=== PATIENT | male | born 1950 | race Caucasian/White ===

== ENCOUNTER → 2017-06-22 16:04 | Outpatient (CLI) | payer OTHER, MEDICARE, SELFPAY ==
[2017-06-22 17:39] LABS: Absolute Lymphocyte Count 3.45 X10^3/ul (0.83-4.51); Absolute Neutrophil Count 5.3 X10^3/uL (2.0-7.7); Basophil# 0.04 X10^3/uL; Basophil% 0.4 % (0-1); Eosinophil# 0.25 X10^3/uL; Eosinophils% 2.4 % (0-5); Hematocrit 42.2 % (40-54); Hemoglobin 14.6 g/dl (13.0-16.5); Lymphocyte # 3.45 X10^3/ul (4.0); Lymphocyte % 33.1 % (19-41); Mean Corp Hgb Conc 34.6 g/gl (32-36); Mean Corpuscular Hgb 30.5 pg (27.0-32.0); Mean Corpuscular Volume 88.1 fL (80-94); Mean Platelet Vol. 10.7 fl (6.2-12.0); Monocyte# 1.36 X10^3/uL; Monocyte% 13.1 % (0-10); Neutrophil # 5.26 X10^3/uL (2.7-7.7); Neutrophil % 50.4 % (47-70); Platelet Count 228 K/mm3 (150-450); RBC Distribution Width CV 13.3 % (11.6-14.6); RBC Distribution Width SD 42.5 fl (35.1-43.9); Red Blood Count 4.79 M/mm3 (4.6-6.2); White Blood Count 10.4 K/mm3 (4.4-11.0)
[2017-06-22 17:49] LABS: CRP 3.03 mg/L (0.0-3.0)
[2017-06-22 17:54] LABS: POSITIVE COUNT NO; POSITIVE DIFFERENTIAL NO; POSITIVE MORPHOLOGY NO
[2017-06-22 20:49] LABS: Erythrocyte Sedimentation Rate 2 mm/hr (0-20)
== END ==
PROVIDERS: Family Provider Family Medicine; PCP Family Medicine; Visit Provider Specialist
DX: T84.090A Other mechanical complication of internal right hip prosthesis, initial encounter (principal)
CPT/HCPCS: 36415; 85025; 85652; 86140

== ENCOUNTER 2017-07-28 11:25 | Inpatient (IN) | payer OTHER, MEDICARE, SELFPAY ==
[2017-07-12 10:48] VITALS: BP 143/74; PULSE 74; RESP 17; TEMP 36.9; O2SAT 97; BMI 40.5
--- NOTE | 2017-07-12 11:13 | SDCEKG_ITS ---
Test Reason : Blood Pressure : / mmHG Vent. Rate : 072 BPM Atrial Rate : 072 BPM P-R Int : 174 ms QRS Dur : 084 ms QT Int : 406 ms P-R-T Axes : 037 038 -05 degrees QTc Int : 444 ms Normal sinus rhythm Normal ECG Confirmed by IZA ZUÑIGA, CHACHA ([id number]), editor managing newspaper RAQUEL INGRAM ([id number]) on 07/13/2017 4:16:48 PM Referred By: Saúl Black Confirmed By:CHACHA COUCH MD
[2017-07-12 12:03] LABS: Anion Gap 7 (5-15); BUN 21 mg/dL (7-18); BUN/Creat Ratio 19.3 RATIO (10-20); Calcium,Total 8.5 mg/dL (8.5-10.1); Chloride 106 mmol/L (98-107); Creatinine, Serum 1.09 mg/dL (0.70-1.30); EST Glomerular Filtration Rate 72 mL/min (>60); Est Glom Filt Rate - Afr Amer 87 mL/min (>60); Estimated Creatinine Clearance 69.08 ml/min; Glucose 146 mg/dL (74-106); Sodium Level 138 mmol/L (136-145)
[2017-07-12 12:09] LABS: Hemoglobin A1c 7.8 % (4.2-6.3)
--- NOTE | 2017-07-12 12:30 | PCM.HP.BLA ---
History and Physical DATE OF SERVICE: 07/28/2017 SCHEDULED PROCEDURE: Revision right total hip acetabular component, possible femur component HISTORY OF PRESENT ILLNESS: This is a 67-year-old male who is been having ongoing pain in his right hip for the past 5 years. Patient underwent a previous right total hip replacement in 2012 in [place]. Patient states his pain is been constant, aching, sharp, stabbing, and sore. He has increased pain going up and down stairs, walking any amount of distance, sitting for extended periods of time, and driving. Patient does complain of pain located in the lateral hip and groin and anterior thigh. Patient states when he gets out of a chair or rolls a certain way in bed there is an audible clunk in his right hip. Patient states he has had pain ever since his right total hip arthroplasty. He has difficult time with accomplishing activities of daily living including bathing and showering, getting dressed, housework, shopping, and leisure activities. Patient has tripped and stumbled secondary to his right hip. Patient has tried rest, ice, elevation with no relief in symptoms. Patient has been through formal physical therapy and home exercises with no relief in symptoms. Patient has been on nonsteroidal anti-inflammatories with no relief. Patient does report previous cortisone injection. Patient has had bone scan which did show evidence of minimal loosening of the acetabular opponent. Patient currently has a medical history pertinent for coronary artery disease, type 2 diabetes mellitus, hypertension, and his previous history of atrial fibrillation. Patient does take Xarelto for previous A. fib including 20 mg dose. We are obtaining surgical clearance from safety tech Dr. Lombadri. Patient currently denies any chest pain, shortness of breath, fevers chills, or recent infections. After discussion with Dr. Black, the patient would like to proceed with a revision right total hip acetabular component with possible femur component. REVIEW OF SYSTEMS: ROS: Const: Denies anorexia, change in appetite, fever, hard of hearing, vision problems and weight change. CV: Denies chest pain, heart murmur, irregular heartbeat and peripheral vascular disease. Resp: Denies asthma, cough, pneumonia, sleep apnea, SOB, tuberculosis and wheezing. GI: Denies constipation, diarrhea, difficulty swallowing, heartburn, nausea, bloody stools and vomiting. : Urinary: denies incontinence. Musculo: Reports trouble walking, but denies leg swelling, limp and weakness. Skin: Denies Raynaud's, history of shingles and tattoo. Neuro: Reports numbness and tingling of the hands but denies ambulatory dysfunction, dizziness, numbness/tingling and tremor. Psych: Denies anxiety, depression, insomnia, mental illness and stress. Eduardo/Lymph: Denies anemia, bleeding/bruising tendency and past transfusion. Reviewed, no changes. PAST MEDICAL HISTORY: Advance Care Plan: Other Directive, LIVING WILL Effective Date: 04/22/2016 Other Directive, POA Effective Date: 04/22/2016 PMH: Medical Problems: Arthritis, Coronary Artery Disease (CAD), Diabetes, High Blood Pressure, Hypercholesterolemia, Afib Accidents: None Surgical Hx: RT THR - (06/2012) Pylori Cyst Removed, LT Hammertoe LT Shoulder Roator Cuff Repair W/Claviculectomy - (01/25/2015) MSK @ [facility] Santos Cataracts Hernia Repair - DR VILLASENOR Anesthesia Complications: Nausea Assistive Devices: Glasses Reviewed, no changes. 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 Personal Habits: Smoking: Patient is a former smoker.Cigarette Use: Former.Alcohol: Weekly use.Drug Use: Denies Use.Enjoy Exercising: Never Exercises. Reviewed, no changes. VITALS: Ht: 71 Wt: 295lb Wt k.812 BMI: 41.1 BP: 154/78 Pulse: 80 Resp: 16 T: 97.3 T: 36.3C ALLERGIES: novicaine Laughing Gas MEDICATIONS: Mobic 15 mg 1 by mouth every day, Losartan Potassium/Hydrochlorothiazide 100-25 mg 1po qday, Aspir-81 81 mg 1 po qdAY, One Daily For Men 50+ Advanced Men 50+ 1po qday, Amlodipine Besylate 20 mg 1 po qd, Januvia 25 mg one PO daily, Glipizide 5 mg 1 tab PO bid, Xarelto 20 mg take 1 tablet by mouth every day, Claritin 10 mg by mouth once daily, Simvastatin 20 mg 1 by mouth every day, Metformin HCL 1000 mg 1 by mouth twice a day, Metoprolol Succinate ER 25 mg 1 by mouth twice a day PRE-OP EXAM: General appearance:NORMAL Other: Eyes: Conjunctivae and lids: NORMAL Pupils: ERR Ears, Nose, Mouth, and Throat: NORMAL Other: Inspection of lips, teeth and gums: NORMAL Other: Neck: Examination of neck: no masses noted. Respiratory: Assessment of respiratory effort: NORMAL Other: Ausculation of lungs: clear to ausculation no wheeses, ronchi or rales. Cardiovascular: Ausculation of heart: regular rate and rhythem, postive mummur Exam of carotid arteries: NORMAL Other: Gastrointestinal: Exam of abdomen: soft, nontender, nondistended bowel sounds present. Lymphatic: Palpation of nodes in neck: NORMAL Other: Palpation of nodes in Axillae: NORMAL Other: Neurological: see below Psychiatric: Orientation to time, place and person: NORMAL Other: Mood and affect: NORMAL Other: PHYSICAL EXAMINATION: Patient walks with an antalgic gait. Previous right hip incision is clean dry and intact without any erythema or signs of infection. Patient does have a loud visible pop when going from a seated position to standing. Range of motion is flexion to 90?, internal rotation to 20?, external rotation to 35?. Patient does have a 6 mm leg length discrepancy on the right which is longer. Patient does have apprehension with flexion and internal rotation testing but no gross instability. IMAGING STUDIES: 1. X-rays of the right hip reveal a stable right total hip replacement. Implants appear in appropriate position. There is no gross lucency around the acetabulum rim. 2. Bone scan was obtained which does show possibility of minimal loosening of the acetabular component. IMPRESSION: 1. Painful right total hip arthroplasty 2. Coronary artery disease 3. History of atrial fibrillation: Currently on Xarelto 20 mg 4. Type 2 diabetes mellitus 5. Hypertension 6. Hypercholesterolemia PLAN: Dr. Black did discuss and review with the patient all treatment options including surgical versus nonsurgical. Patient wishes to proceed with above-stated procedure. Potential risks, benefits, and complications of this procedure were discussed in detail including but not limited to , infection, nerve and blood vessel damage, persistent pain, numbness, tingling, paresthesias, blood clot, pulmonary embolism, and requirement for further surgery. The patient expressed full understanding has no further questions for the doctor. Patient does agree to proceed with the above-stated procedure and has signed the surgery consent form. We are obtaining surgical clearance from patient's safety tech. ___ I have re-examined the patient. There are no clinical changes since date of exam. ___ See progress notes for changes. ___ Dictated on admission Date: Time: Signature:
--- NOTE | 2017-07-12 12:40 | HP.PCM_ITS ---
History and Physical DATE OF SERVICE: 07/28/2017 SCHEDULED PROCEDURE: Revision right total hip acetabular component, possible femur component HISTORY OF PRESENT ILLNESS: This is a 67-year-old male who is been having ongoing pain in his right hip for the past 5 years. Patient underwent a previous right total hip replacement in 2012 in [place]. Patient states his pain is been constant, aching, sharp, stabbing, and sore. He has increased pain going up and down stairs, walking any amount of distance, sitting for extended periods of time, and driving. Patient does complain of pain located in the lateral hip and groin and anterior thigh. Patient states when he gets out of a chair or rolls a certain way in bed there is an audible clunk in his right hip. Patient states he has had pain ever since his right total hip arthroplasty. He has difficult time with accomplishing activities of daily living including bathing and showering, getting dressed, housework, shopping, and leisure activities. Patient has tripped and stumbled secondary to his right hip. Patient has tried rest, ice, elevation with no relief in symptoms. Patient has been through formal physical therapy and home exercises with no relief in symptoms. Patient has been on nonsteroidal anti-inflammatories with no relief. Patient does report previous cortisone injection. Patient has had bone scan which did show evidence of minimal loosening of the acetabular opponent. Patient currently has a medical history pertinent for coronary artery disease, type 2 diabetes mellitus, hypertension, and his previous history of atrial fibrillation. Patient does take Xarelto for previous A. fib including 20 mg dose. We are obtaining surgical clearance from care management assistant Dr. Lombardi. Patient currently denies any chest pain, shortness of breath, fevers chills, or recent infections. After discussion with Dr. Black, the patient would like to proceed with a revision right total hip acetabular component with possible femur component. REVIEW OF SYSTEMS: ROS: Const: Denies anorexia, change in appetite, fever, hard of hearing, vision problems and weight change. CV: Denies chest pain, heart murmur, irregular heartbeat and peripheral vascular disease. Resp: Denies asthma, cough, pneumonia, sleep apnea, SOB, tuberculosis and wheezing. GI: Denies constipation, diarrhea, difficulty swallowing, heartburn, nausea, bloody stools and vomiting. : Urinary: denies incontinence. Musculo: Reports trouble walking, but denies leg swelling, limp and weakness. Skin: Denies Raynaud's, history of shingles and tattoo. Neuro: Reports numbness and tingling of the hands but denies ambulatory dysfunction, dizziness, numbness/tingling and tremor. Psych: Denies anxiety, depression, insomnia, mental illness and stress. Eduardo/Lymph: Denies anemia, bleeding/bruising tendency and past transfusion. Reviewed, no changes. PAST MEDICAL HISTORY: Advance Care Plan: Other Directive, LIVING WILL Effective Date: 04/22/2016 Other Directive, POA Effective Date: 04/22/2016 PMH: Medical Problems: Arthritis, Coronary Artery Disease (CAD), Diabetes, High Blood Pressure, Hypercholesterolemia, Afib Accidents: None Surgical Hx: RT THR - (06/2012) Pylori Cyst Removed, LT Hammertoe LT Shoulder Roator Cuff Repair W/Claviculectomy - (01/25/2015) MSK @ [facility] Santos Cataracts Hernia Repair - DR VILLASENOR Anesthesia Complications: Nausea Assistive Devices: Glasses Reviewed, no changes. 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 Personal Habits: Smoking: Patient is a former smoker.Cigarette Use: Former.Alcohol: Weekly use.Drug Use: Denies Use.Enjoy Exercising: Never Exercises. Reviewed, no changes. VITALS: Ht: 71 Wt: 295lb Wt k.812 BMI: 41.1 BP: 154/78 Pulse: 80 Resp: 16 T: 97.3 T: 36.3C ALLERGIES: novicaine Laughing Gas MEDICATIONS: Mobic 15 mg 1 by mouth every day, Losartan Potassium/Hydrochlorothiazide 100-25 mg 1po qday, Aspir-81 81 mg 1 po qdAY, One Daily For Men 50+ Advanced Men 50+ 1po qday, Amlodipine Besylate 20 mg 1 po qd, Januvia 25 mg one PO daily, Glipizide 5 mg 1 tab PO bid, Xarelto 20 mg take 1 tablet by mouth every day, Claritin 10 mg by mouth once daily, Simvastatin 20 mg 1 by mouth every day, Metformin HCL 1000 mg 1 by mouth twice a day, Metoprolol Succinate ER 25 mg 1 by mouth twice a day PRE-OP EXAM: General appearance:NORMAL Other: Eyes: Conjunctivae and lids: NORMAL Pupils: ERR Ears, Nose, Mouth, and Throat: NORMAL Other: Inspection of lips, teeth and gums: NORMAL Other: Neck: Examination of neck: no masses noted. Respiratory: Assessment of respiratory effort: NORMAL Other: Ausculation of lungs: clear to ausculation no wheeses, ronchi or rales. Cardiovascular: Ausculation of heart: regular rate and rhythem, postive mummur Exam of carotid arteries: NORMAL Other: Gastrointestinal: Exam of abdomen: soft, nontender, nondistended bowel sounds present. Lymphatic: Palpation of nodes in neck: NORMAL Other: Palpation of nodes in Axillae: NORMAL Other: Neurological: see below Psychiatric: Orientation to time, place and person: NORMAL Other: Mood and affect: NORMAL Other: PHYSICAL EXAMINATION: Patient walks with an antalgic gait. Previous right hip incision is clean dry and intact without any erythema or signs of infection. Patient does have a loud visible pop when going from a seated position to standing. Range of motion is flexion to 90?, internal rotation to 20?, external rotation to 35?. Patient does have a 6 mm leg length discrepancy on the right which is longer. Patient does have apprehension with flexion and internal rotation testing but no gross instability. IMAGING STUDIES: 1. X-rays of the right hip reveal a stable right total hip replacement. Implants appear in appropriate position. There is no gross lucency around the acetabulum rim. 2. Bone scan was obtained which does show possibility of minimal loosening of the acetabular component. IMPRESSION: 1. Painful right total hip arthroplasty 2. Coronary artery disease 3. History of atrial fibrillation: Currently on Xarelto 20 mg 4. Type 2 diabetes mellitus 5. Hypertension 6. Hypercholesterolemia PLAN: Dr. Black did discuss and review with the patient all treatment options including surgical versus nonsurgical. Patient wishes to proceed with above- stated procedure. Potential risks, benefits, and complications of this procedure were discussed in detail including but not limited to , infection , nerve and blood vessel damage, persistent pain, numbness, tingling, paresthesias, blood clot, pulmonary embolism, and requirement for further surgery. The patient expressed full understanding has no further questions for the doctor. Patient does agree to proceed with the above-stated procedure and has signed the surgery consent form. We are obtaining surgical clearance from patient's care management assistant. ___ I have re-examined the patient. There are no clinical changes since date of exam. ___ See progress notes for changes. ___ Dictated on admission Date: Time: Signature:
[2017-07-28] VITALS (11 sets, daily range): BP systolic 113–170; BP diastolic 53–87; PULSE 80–92; RESP 16–18; TEMP 36–37.4; O2SAT 95–98; BMI 40.5
[2017-07-28] MEDS: oxyCODONE HCl Cr 10 MG Tablet PO (12:13)
[2017-07-28] MEDS: Celecoxib 200 MG Capsule 400 MG PO (12:14)
[2017-07-28] MEDS: Acetaminophen 500 MG Tablet 1000 MG PO ×2 (12:14→21:30)
[2017-07-28 12:31] LABS: Bedside Glucose 174 mg/dL (70-110)
[2017-07-28] MEDS: Lactated Ringers 1,000 ML 999 ML IV (12:40)
[2017-07-28] MEDS: Scopolamine 1mg/72hr Patch 1 PATCH TD (16:25)
--- NOTE | 2017-07-28 16:39 | PCM.OPRPT ---
Report of Operation Date of Procedure: 07/28/17 Pre-Operative Diagnosis: Painful right total hip replacement, aseptic loosening, instability Post-Operative Diagnosis: Painful right total hip replacement, aseptic loosening, instability Surgery/Procedure Performed:: Posterior revision right total hip replacement acetabular component and femoral components Description of Surgical Findings:: Stable hip with equal leg lengths. bpm solution architect: Chino Esquivel Type of Anesthesia:: General Anesthesiologist: Santos Carver Special Medications: 3 g Ancef, 1 g TXA at incision, 1 g TXA closure, 10 mg Decadron, joint cocktail (5 mg Duramorph, 30 mL of 0.5% Ropivicaine, 1000 units of epinephrine, 30 mg of Toradol) 2 g vancomycin powder were placed in the wound at the end of the case Specimen's removed: 3 separate specimens were sent to microbiology Estimated Blood Loss (mL): 300 ml Fluids Replaced: 2200 milliliters crystalloid Description of Procedure: Findings: Adequate reduction with stability of the hip and equal leg lengths measured intraoperatively. Components used: 1. DePuy Biolox delta when he 8 mm, +8.5 mm femoral head with titanium sleeve 2. Mahesh tritanium revision 62 mm acetabular shell 2 screws 3. [place] X3 polyethylene liner, 48G 4. Mahesh MDM liner 48G Brief history operative indications: 67-year-old male presented to my office with pain and a clunking in his hip. Patient when he would wake up at night or arise from a chair would have a violent clunk. Bone scan also showed acetabular loosening. Based on his pain and discomfort and concerns for instability we elected to proceed with revision total hip replacement. Risks and benefits were discussed with the patient which included but were not limited to blood loss, DVTs, PEs, infection, neurovascular damage, and dislocation. In light of all this patient did agree to proceed with a right revision total hip arthroplasty. Procedure: On the date of procedure the patient's R hip was marked in the preoperative area. Patient was then taken back to the operating room where anesthesia assumed control of the C-spine and airway and administered anesthetic. Patient was transferred to the operating table and placed in the lateral decubitus position with the affected hip up. The patient was secured in the bed with the lateral positioners and leg lengths were checked. The R lower extremity was then prepped out in a sterile fashion using chlorhexidine while the surgeon scrubbed. Upon reentering the room the R lower extremity was draped in the standard orthopedic fashion and the incision was marked using the previous incision. A timeout was called and everyone agreed upon the side, the site, the procedure be performed, antibiotics given, and patient's identity. At this time incision was made through skin, subcutaneous tissue, and fat down to fascia. The fascia was then incised and a Charley retractor was placed. The soft tissue was then cleared from the posterior external rotators the more inferior external rotators were intact. The piriformis was not. Starting at the posterior edge of the greater trochanter posterior tissues were taken down until the femoral head could be identified. Posterior capsular tissue was then tagged. The retractors were then placed inside the capsule and an aggressive synovectomy was performed and synovium was sent for culture. Posterior and inferior synovium was sent for culture. At this time we were able to place a bone hook around the femoral neck and dislocate the with the assistance of my PA. Bone tamp was used to then disengage the Mcdonald taper. 28mm, +1.5 mm cobalt-chromium head was removed. Our attention was then directed to the acetabulum and the anterior retractor was placed and a Gelpi was used to retract the posterior capsule superiorly. All soft tissue debris was removed from around the acetabular implant. The acetabular liner was then removed using an osteotome and one screw was removed from the cup. At this time synovial membrane from behind the liner was sent for culture as well. Once the screw had been removed a trial liner was fixed into place and the acetabular osteotomes were used to remove the acetabular component. Acetabulum was again exposed and the acetabulum was then sequentially reamed to 61 millimeters. At this time a and 62 mm trial was impacted into place and fit well. A 62 mm mahesh tritanium cup was opened and impacted into place. The Au Franc was used to verify the position of the cup and 2 bone screws were placed in the safe zone of the acetabular component. Once it was securely fastened down the mdm liner was placed and security was verified. Once it was securely fastened our attention was again turned towards the femur and the high offset neck was chosen and a 28 mm head with 8.5 2 g of TXA mm offset was trialed. The hip was properly reduced using traction and external rotation. Stability was checked with the appropriate amount of shuck, no impingement with external rotation, and stable at 90? flexion and 90? internal rotation. Leg lengths were checked and were found to be equal on the table. The proximal femur was again exposed and the components were removed from the wound. The final components were verified and opened. The components were assembled and the hip was reduced and was again stable. The wound was copiously irrigated out with normal saline. 2 g of TXA were lavaged through the wound for 1 minute. Wound was again copiously irrigated out normal saline and 1 g of vancomycin powder was placed inside the joint. The posterior capsular tissues was repaired through drill holes to the greater trochanter. Additional gram of vancomycin was placed deep to the fascia. The joint cocktail was also given at this time. Closure was then done using #1 Vicryl to close the fascia. A 2-0 Vicryl interrupted sutures were used to close the subcutaneous skin. Skin danish were used for final skin closure. A sterile dressing was placed. Patient was awakened by anesthesia and transferred to the [facility]. Patient was then transferred to the PACU for recovery. Postoperative plan: Patient will get 24 hours postop antibiotics. Patient will get in-house physical therapy and will be weight-bear as tolerated, hip precautions for 3 months. Patient will follow up in office in 2 weeks for a wound check and x-rays. During the course of the procedure the physician esol teacher assistant played a vital role. His intimate knowledge of my steps in the procedure aided in safe and expedient completion of the procedure. The PA played a vital rolls in positioning particularly in obtaining the appropriate decubitus position. The PA was also vital in the retraction of soft tissues during the exposure as this is a vital part of the procedure to prevent complications and fractures. The PA was also vital and protecting soft tissues during times of bony cuts and reaming. He also played a vital role in closure with my direct supervision. The PA was also important during reduction and dislocation of the joint and trials intraoperatively. Grafts/Implants Used: Mahesh acetabular component, Biolox ceramic Depuy femoral head - Complications None - Admit VTE Documentation VTE Present on Admission: No VTE Mechan Device Prophylaxis: SCD's, Thigh High DEBBIE Hose VTE Pharm Prophylaxis ordered?: Yes
--- NOTE | 2017-07-28 16:52 | OP.PCM_ITS ---
Report of Operation Date of Procedure: 07/28/17 Pre-Operative Diagnosis: Painful right total hip replacement, aseptic loosening , instability Post-Operative Diagnosis: Painful right total hip replacement, aseptic loosening , instability Surgery/Procedure Performed:: Posterior revision right total hip replacement acetabular component and femoral components Description of Surgical Findings:: Stable hip with equal leg lengths. paper products inspector: Chino Esquivel Type of Anesthesia:: General Anesthesiologist: Santos Carver Special Medications: 3 g Ancef, 1 g TXA at incision, 1 g TXA closure, 10 mg Decadron, joint cocktail (5 mg Duramorph, 30 mL of 0.5% Ropivicaine, 1000 units of epinephrine, 30 mg of Toradol) 2 g vancomycin powder were placed in the wound at the end of the case Specimen's removed: 3 separate specimens were sent to microbiology Estimated Blood Loss (mL): 300 ml Fluids Replaced: 2200 milliliters crystalloid Description of Procedure: Findings: Adequate reduction with stability of the hip and equal leg lengths measured intraoperatively. Components used: 1. DePuy Biolox delta when he 8 mm, +8.5 mm femoral head with titanium sleeve 2. Mahesh tritanium revision 62 mm acetabular shell 2 screws 3. Wolverine X3 polyethylene liner, 48G 4. Wolverine MDM liner 48G Brief history operative indications: 67-year-old male presented to my office with pain and a clunking in his hip. Patient when he would wake up at night or arise from a chair would have a violent clunk. Bone scan also showed acetabular loosening. Based on his pain and discomfort and concerns for instability we elected to proceed with revision total hip replacement. Risks and benefits were discussed with the patient which included but were not limited to blood loss, DVTs, PEs, infection, neurovascular damage, and dislocation. In light of all this patient did agree to proceed with a right revision total hip arthroplasty. Procedure: On the date of procedure the patient's R hip was marked in the preoperative area. Patient was then taken back to the operating room where anesthesia assumed control of the C-spine and airway and administered anesthetic. Patient was transferred to the operating table and placed in the lateral decubitus position with the affected hip up. The patient was secured in the bed with the lateral positioners and leg lengths were checked. The R lower extremity was then prepped out in a sterile fashion using chlorhexidine while the surgeon scrubbed. Upon reentering the room the R lower extremity was draped in the standard orthopedic fashion and the incision was marked using the previous incision. A timeout was called and everyone agreed upon the side, the site, the procedure be performed, antibiotics given, and patient's identity. At this time incision was made through skin, subcutaneous tissue, and fat down to fascia. The fascia was then incised and a Charley retractor was placed. The soft tissue was then cleared from the posterior external rotators the more inferior external rotators were intact. The piriformis was not. Starting at the posterior edge of the greater trochanter posterior tissues were taken down until the femoral head could be identified. Posterior capsular tissue was then tagged. The retractors were then placed inside the capsule and an aggressive synovectomy was performed and synovium was sent for culture. Posterior and inferior synovium was sent for culture. At this time we were able to place a bone hook around the femoral neck and dislocate the with the assistance of my PA. Bone tamp was used to then disengage the Mcdonald taper. 28mm, +1.5 mm cobalt-chromium head was removed. Our attention was then directed to the acetabulum and the anterior retractor was placed and a Gelpi was used to retract the posterior capsule superiorly. All soft tissue debris was removed from around the acetabular implant. The acetabular liner was then removed using an osteotome and one screw was removed from the cup. At this time synovial membrane from behind the liner was sent for culture as well. Once the screw had been removed a trial liner was fixed into place and the acetabular osteotomes were used to remove the acetabular component. Acetabulum was again exposed and the acetabulum was then sequentially reamed to 61 millimeters. At this time a and 62 mm trial was impacted into place and fit well. A 62 mm mahesh tritanium cup was opened and impacted into place. The Au Franc was used to verify the position of the cup and 2 bone screws were placed in the safe zone of the acetabular component. Once it was securely fastened down the mdm liner was placed and security was verified. Once it was securely fastened our attention was again turned towards the femur and the high offset neck was chosen and a 28 mm head with 8.5 2 g of TXA mm offset was trialed. The hip was properly reduced using traction and external rotation. Stability was checked with the appropriate amount of shuck, no impingement with external rotation, and stable at 90? flexion and 90? internal rotation. Leg lengths were checked and were found to be equal on the table. The proximal femur was again exposed and the components were removed from the wound. The final components were verified and opened. The components were assembled and the hip was reduced and was again stable. The wound was copiously irrigated out with normal saline. 2 g of TXA were lavaged through the wound for 1 minute. Wound was again copiously irrigated out normal saline and 1 g of vancomycin powder was placed inside the joint. The posterior capsular tissues was repaired through drill holes to the greater trochanter. Additional gram of vancomycin was placed deep to the fascia. The joint cocktail was also given at this time. Closure was then done using #1 Vicryl to close the fascia. A 2-0 Vicryl interrupted sutures were used to close the subcutaneous skin. Skin danish were used for final skin closure. A sterile dressing was placed. Patient was awakened by anesthesia and transferred to the [facility]. Patient was then transferred to the PACU for recovery. Postoperative plan: Patient will get 24 hours postop antibiotics. Patient will get in-house physical therapy and will be weight-bear as tolerated, hip precautions for 3 months. Patient will follow up in office in 2 weeks for a wound check and x- rays. During the course of the procedure the physician optometric assistant played a vital role. His intimate knowledge of my steps in the procedure aided in safe and expedient completion of the procedure. The PA played a vital rolls in positioning particularly in obtaining the appropriate decubitus position. The PA was also vital in the retraction of soft tissues during the exposure as this is a vital part of the procedure to prevent complications and fractures. The PA was also vital and protecting soft tissues during times of bony cuts and reaming. He also played a vital role in closure with my direct supervision. The PA was also important during reduction and dislocation of the joint and trials intraoperatively. Grafts/Implants Used: Wolverine acetabular component, Biolox ceramic Depuy femoral head - Complications None - Admit VTE Documentation VTE Present on Admission: No VTE Mechan Device Prophylaxis: SCD's, Thigh High DEBBIE Hose VTE Pharm Prophylaxis ordered?: Yes
--- NOTE | 2017-07-28 17:30 | RAD_ITS ---
STUDY: X-RAY - PELVIS AND RIGHT HIP REASON FOR EXAM: Male, 67 years old. Postop. TECHNIQUE: Radiological exam, hip, unilateral, with pelvis when performed; 2 or 3 views. COMPARISON: None. FINDINGS: There is a non-specific bowel gas pattern. Normal visualized soft tissue structures. Normal visualized bilateral iliac wings, sacroiliac joints, and sacrum. Normal bilateral superior and inferior pubic rami. Normal pubic symphysis. Normal bilateral ischial tuberosities. The patient has undergone right total hip arthroplasty. Following resection of the femoral head and neck, and middle bipolar hip prosthesis was placed. The acetabular and femoral components appear well seated, and in anatomic alignment. 2 metal screws pass through the acetabular prosthesis into the lower right ilium. Gas lucencies in the soft tissues adjacent to the hip as well as numerous skin danish in the lateral soft tissues are consistent with recent surgery. RAD/Hip Min 2 Views (Portable) IMPRESSION: Status post right total hip arthroplasty. Electronically Signed: Jules Huddleston MD at 18:18 EDT , Service support ,
[2017-07-28 17:36] LABS: Bedside Glucose 234 mg/dL (70-110)
[2017-07-28] MEDS: Lactated Ringers 1,000 ML 125 ML IV (19:15)
[2017-07-28] MEDS: Cefazolin 1 GM/50 ML BAG IV (21:23)
[2017-07-28] MEDS: Folic Acid 1 MG Tablet PO (21:28)
[2017-07-28] MEDS: Ferrous Sulfate 325 MG Tablet PO (21:28)
[2017-07-28] MEDS: Atorvastatin Calcium 10 MG Tablet PO (21:29)
[2017-07-28] MEDS: Senna/Docusate Sodium 1 Tablet 2 TABLET PO (21:29)
[2017-07-28] MEDS: Glucerna Shake 120 ML LIQUID PO (21:39)
[2017-07-29] VITALS (8 sets, daily range): BP systolic 136–164; BP diastolic 68–77; PULSE 80–94; RESP 16; TEMP 36.6–37; O2SAT 96–100
[2017-07-29] MEDS: Cefazolin 1 GM/50 ML BAG IV (05:24)
[2017-07-29] MEDS: 0.9% NaCl Peripheral Flush Adult/Peds IV (05:24)
[2017-07-29] MEDS: Acetaminophen 500 MG Tablet 1000 MG PO ×3 (05:24→21:42)
[2017-07-29 06:35] LABS: Hematocrit 34.4 % (40-54); Mean Corp Hgb Conc 34.9 g/gl (32-36); Mean Corpuscular Hgb 30.8 pg (27.0-32.0); Mean Corpuscular Volume 88.2 fL (80-94); Mean Platelet Vol. 9.7 fl (6.2-12.0); Platelet Count 201 K/mm3 (150-450); RBC Distribution Width SD 40.7 fl (35.1-43.9); White Blood Count 17.7 K/mm3 (4.4-11.0)
[2017-07-29 06:37] LABS: Scan Indicated on CBC? Y/N NO
[2017-07-29 06:40] LABS: Bedside Glucose 242 mg/dL (70-110)
[2017-07-29 06:56] LABS: Anion Gap 9 (5-15); BUN 19 mg/dL (7-18); BUN/Creat Ratio 18.3 RATIO (10-20); Calcium,Total 7.7 mg/dL (8.5-10.1); Chloride 104 mmol/L (98-107); Creatinine, Serum 1.04 mg/dL (0.70-1.30); EST Glomerular Filtration Rate 76 mL/min (>60); Est Glom Filt Rate - Afr Amer 91 mL/min (>60); Glucose 239 mg/dL (74-106); Potassium 4.5 mmol/L (3.5-5.1); Sodium Level 135 mmol/L (136-145)
[2017-07-29] MEDS: hydroCHLOROthiazide 25 MG Tablet PO (07:47)
[2017-07-29] MEDS: Senna/Docusate Sodium 1 Tablet 2 TABLET PO ×2 (07:47→21:43)
[2017-07-29] MEDS: metFORMIN HCl 1,000 MG Tablet 1000 MG PO ×2 (07:47→17:07)
[2017-07-29] MEDS: Ferrous Sulfate 325 MG Tablet PO ×2 (07:48→17:06)
[2017-07-29] MEDS: Aspirin 81 MG TAB.CHEW PO (07:48)
[2017-07-29] MEDS: Folic Acid 1 MG Tablet PO ×2 (07:48→17:07)
[2017-07-29] MEDS: glipiZIDE 5 MG Tablet PO (07:48)
[2017-07-29] MEDS: Losartan Potassium 100 MG Tablet PO (07:48)
[2017-07-29] MEDS: Famotidine 20 MG Tablet PO (07:49)
[2017-07-29] MEDS: LINAGLIPTIN 5 MG TABLET PO (07:49)
[2017-07-29] MEDS: Rivaroxaban 20 MG Tablet PO (07:49)
[2017-07-29] MEDS: amLODIPine 5 MG Tablet PO (07:49)
[2017-07-29] MEDS: Glucerna Shake 120 ML LIQUID PO ×3 (07:51→17:09)
--- NOTE | 2017-07-29 09:40 | PN.ORTHO_ITS ---
Subjective: The patient was sitting in bedside chair upon examination. Patient denies any chest pain, shortness of breath, dizziness, lightheadedness, nausea or vomiting , or calf pain. Pain is controlled on medications. No adverse overnight events. Overall patient is doing well. He has been tolerating therapy. Plan is for patient to go home upon discharge. Objective: Vital signs stable and afebrile. Patient is able to plantarflex and dorsiflex actively. Sensation is intact to light touch to saphenous, sural, superficial and deep peroneal, and tibial distribution. Dressing is clean dry and intact. Negative Homans bilaterally, negative signs and symptoms of DVT. - Physical Exam General: Alert, Oriented x3, Cooperative, No apparent distress Vital Signs Temp Pulse Resp BP Pulse Ox 98.5 F 80 16 151/76 H 100 07/29/17 07:54 07/29/17 07:54 07/29/17 07:54 07/29/17 07:54 07/29/17 07:54 Oxygen Delivery Method Room Air Weight: 131.8 kg Body Mass Index (BMI) 40.5 Finger Stick Blood Glucose 234 Intake and Output for Last 24 Hours 07/27/17 07/28/17 07/29/17 23:59 23:59 23:59 Intake Total 2300 / 2300 3001 / 3001 Output Total 2425 / 2425 Balance 2300 / 2300 576 / 576 Laboratory Tests Past 24 Hrs 07/29/17 07/29/17 06:24 06:24 WBC 17.7 H RBC 3.90 L Hgb 12.0 L Hct 34.4 L MCV 88.2 MCH 30.8 MCHC 34.9 RDW 13.0 RDW Differential 40.7 Plt Count 201 MPV 9.7 Sodium 135 L Potassium 4.5 Chloride 104 Carbon Dioxide 22.0 Anion Gap 9 BUN 19 H Creatinine 1.04 Estim Creat Clear Calc 72.40 Est GFR (MDRD) Af Amer 91 Est GFR (MDRD) Non-Af 76 BUN/Creatinine Ratio 18.3 Glucose 239 H Calcium 7.7 L POC Glucose 07/29/17 07/28/17 07/28/17 06:35 17:31 12:17 POC Glucose 242 H 234 H 174 H Medical Necessity - Tobacco Use Smoking Status: Former smoker Assessment/Plan 1. S/P revision right hip arthroplasty acetabular component and femoral component POD #1 2. Continue Pain Medications: Tylenol and OxyIR 3. DVT Prophylaxis: Xarelto 4. PT/OT: Weightbearing as tolerated, posterior hip precautions for 3 months 5. H & H: 12.0/34.4, asymptomatic 6. Leukocytosis: Currently 17.7, afebrile. Patient did receive Decadron intraoperatively 7. Encouraged Incentive Spirometry 8. Disposition: Plan is for discharge home tomorrow.
--- NOTE | 2017-07-29 09:48 | CON.PCM_ITS ---
Problem List (1) Carotid artery disease Status: Chronic Qualifiers: Laterality: bilateral Qualified Code(s): I77.9 - Disorder of arteries and arterioles, unspecified (2) Hyperlipidemia Status: Chronic Qualifiers: Hyperlipidemia type: pure hypercholesterolemia Qualified Code(s): E78.00 - Pure hypercholesterolemia, unspecified; E78.0 - Pure hypercholesterolemia (3) Paroxysmal atrial fibrillation Status: Chronic (4) Hypertension Status: Chronic Qualifiers: Hypertension type: essential hypertension Qualified Code(s): I10 - Essential (primary) hypertension (5) Diabetes mellitus type II, controlled Status: Chronic Qualifiers: Diabetes mellitus ferry terminal supervisor insulin use: without ferry terminal supervisor use Diabetes mellitus complication status: without complication Qualified Code(s): E11.9 - Type 2 diabetes mellitus without complications (6) Pulmonary hypertension Status: Chronic (7) Sleep apnea Status: Chronic Reason for Consult Date of Consultation: 07/29/17 Reason for Consultation: Postoperative medical management. History of Present Illness: The patient is a 67 year old M with past medical history as mentioned above who underwent elective posterior revision of right total hip replacement for painful right hip total replacement/aseptic loosening and instability and I am seeing this patient in consultation for postoperative medical management. At this time, patient mentioned that his right hip pain is dramatically improved before his surgery. He has been complaining of right hip pain for 5 years after he had right hip replaced 2012. At this time, his pain is almost 1-2 out of 10 in severity at the wrist. He denies any other complaints. He had a history of paroxysmal atrial fibrillation and he has been in sinus rhythm, on metoprolol for rate control and on Xarelto for anticoagulation. He has a history of type 2 diabetes mellitus and he has been on oral hypoglycemic drugs and his hemoglobin A1c was 7.8 on July 12, 2017. He had history of hypertension and he has been on Norvasc, HCTZ, losartan and metoprolol and his blood pressure seemed to be under control. At this time, his vital signs are stable, afebrile. His routine blood work from today reviewed, revealed leukocytosis, otherwise unremarkable. Past Medical History Past Medical History (Chronic Problems): Chronic Problems (Last Updated 07/16/17 @ 15:32 by LUIS Espinosa) Carotid artery disease (Chronic) Hyperlipidemia (Chronic) Paroxysmal atrial fibrillation (Chronic) Hypertension (Chronic) Diabetes mellitus type II, controlled (Chronic) Pulmonary hypertension (Chronic) Atrial fibrillation (Chronic) Sleep apnea (Chronic) Allergies procaine HCl [From Novocain] Adverse Reaction (Verified 07/16/17 11:06) HEART RACES HEART RACES LAUGHING GAS Adverse Reaction (Uncoded 07/12/17 10:37) Vomiting Home Medications: Ambulatory Orders Medication Instructions Recorded Amlodipine [Norvasc] 5 mg PO DAILY 07/25/15 Aspirin [Aspirin, Baby] 81 mg PO DAILY@0800 07/25/15 Losartan/Hydrochlorothiazide 1 tab PO DAILY 07/25/15 [Hyzaar 100-25 Tablet] Metformin HCl [Glucophage] 1,000 mg PO BID 07/25/15 Multivitamins,Therapeutic 1 tab PO DAILY 07/25/15 [Multivitamin] Loratadine [Claritin] 10 mg PO DAILY PRN 07/13/16 Meloxicam [Mobic] 15 mg PO DAILY 07/13/16 Sitagliptin Phosphate [Januvia] 100 mg PO DAILY 07/13/16 Simvastatin [Zocor] 20 mg PO QHS 10/28/16 Metoprolol Tartrate [Lopressor 25 mg PO DAILY 07/12/17 (Beta [place])] Rivaroxaban [Xarelto] 20 mg PO DAILY 07/12/17 glipizide 5 mg tablet 5 mg PO QDAY 07/16/17 Surgical History: cataract, herniorrhaphy, total hip arthroplasty Psychiatric History: No pertinent psych hx Lives: Spouse/ Significant Other Smoking Status: Former smoker Alcohol: None Drugs: None - *Family History Maternal History Items: No pertinent history Paternal History Items: No pertinent history Review of Systems Constitutional: Denies: Anorexia, Chills, Fever, Night Sweats Eyes: Denies: Blurred vision, Double vision, Drainage, Redness HEENT: Denies: Difficulty Hearing, Eye Pain, Nasal Congestion, Sore Throat Cardiovascular: Denies: Chest Pain, Chest Pressure, Chest Tightness, Edema, Light Headedness, Palpitations, Syncope Respiratory: Denies: Cough, Pleuritic Pain, Shortness of Breath, Sputum production, Wheezing Gastrointestinal: Denies: Abdominal Pain, Constipation, Diarrhea, Nausea, Vomiting Genitourinary: Denies: Dysuria, Frequency, Hematuria Musculoskeletal: Reports: Joint Pain. Denies: Arm Pain, Back Pain, Foot Pain Skin: Denies: Dryness, Rash Neurological: Denies: Balance problems, Double vision, Change in Speech, Slurred speech, Confusion, Headaches, Incoordination Psychiatric: Denies: Anxiety, Depression Endocrine: Denies: Change in Body Habitus, Polydipsia - Physical Exam General: Alert, Oriented x3, Cooperative, No apparent distress HEENT: Atraumatic, PERRLA, EOMI Oral: Moist Mucosa, No Gingival or Mucosal Lesions/ Ulcerations Neck: Supple, No JVD, Negative Carotid Bruits, Trachea Midline, Thyroid Normal Size and Texture Lungs: Clear to auscultation, No rhonchi, No wheeze, No rales, Diminished Cardiovascular: Regular rate, Regular Rhythm, Normal S1, Normal S2, No murmurs Abdomen: Bowel Sounds Present, Soft, Non Tender, Non-Distended, No Hepato- splenomegaly, Obese Extremities: No clubbing, No cyanosis, No edema Skin: No rashes, No breakdown Lymphatic: No Cervical, Supraclavicular, or Inguinal Adenopathy Neurological: Cranial nerves II-XII grossly intact, Motor Exam 5/5 strength throughout Psych/Mental Status: Normal Affect, Appropriate, Alert and oriented to time, place, person, mood and affect Vital Signs Temp Pulse Resp BP Pulse Ox 98.5 F 80 16 151/76 H 100 07/29/17 07:54 07/29/17 07:54 07/29/17 07:54 07/29/17 07:54 07/29/17 07:54 Oxygen Delivery Method Room Air Weight: 290 lb 9.108 oz Body Mass Index (BMI) 40.5 Finger Stick Blood Glucose 234 Intake and Output for Last 24 Hours 07/27/17 07/28/17 07/29/17 23:59 23:59 23:59 Intake Total 2300 / 2300 3001 / 3001 Output Total 2425 / 2425 Balance 2300 / 2300 576 / 576 Laboratory Tests Past 24 Hrs 07/29/17 07/29/17 06:24 06:24 WBC 17.7 H RBC 3.90 L Hgb 12.0 L Hct 34.4 L MCV 88.2 MCH 30.8 MCHC 34.9 RDW 13.0 RDW Differential 40.7 Plt Count 201 MPV 9.7 Sodium 135 L Potassium 4.5 Chloride 104 Carbon Dioxide 22.0 Anion Gap 9 BUN 19 H Creatinine 1.04 Estim Creat Clear Calc 72.40 Est GFR (MDRD) Af Amer 91 Est GFR (MDRD) Non-Af 76 BUN/Creatinine Ratio 18.3 Glucose 239 H Calcium 7.7 L POC Glucose 07/29/17 07/28/17 07/28/17 06:35 17:31 12:17 POC Glucose 242 H 234 H 174 H Clinical Impression(s) from Imaging Studies Hip X-Ray 07/28/17 17:30 IMPRESSION: Status post right total hip arthroplasty. Electronically Signed: Jules Huddleston MD at 18:18 EDT , Service support , Assessment/Plan This is a 67 years old male patient admitted for elective posterior revision of right total hip replacement for painful right total hip replacement, aseptic loosening and instability and I am seeing this patient in consultation for postoperative medical management. #1 status post posterior revision of right total hip replacement: Postop day 1, this was done for painful right total hip with aseptic loosening and instability. Patient reported significant improvement of his chronic right hip pain that has been going on for 5 years. He is on p.o. doxycycline. He is on IV morphine and OxyIR as needed for pain as well as IV Toradol. His blood pressure slightly elevated, other vital signs are stable. His routine blood work was remarkable for leukocytosis, otherwise normal. Orthopedic surgery is managing. #2 leukocytosis: Platelet count is 17,000, no fever and patient denied symptoms suggestive of infection. This is likely reactive to stress and surgery as well as pain. Plan to repeat CBC after tomorrow, monitor for fever. #3 paroxysmal atrial fibrillation: Heart rate has been in the 80s and he is in sinus rhythm, stable. He is on metoprolol for rate control and he was on Xarelto for anticoagulation. Xarelto held 5 days before surgery and plan to start Xarelto today. #4 hypertension: Blood pressure has been slightly elevated likely because of pain in surgery. He is on Norvasc, HCTZ, losartan and metoprolol. #5 type 2 diabetes mellitus: ADA diet, Accu-Cheks, continue glipizide, Tradjenta and Metformin, and systolic scale. #6 hyperlipidemia: Continue statins. #7 carotid artery disease: Status post carotid endarterectomy. # DVT prophylaxis: He is on Xarelto. This note was generated with [employer] dictation software. It may contain incorrect words, spelling, and punctuation that were not noted in checking the note before signing. Code Visit Inpatient E&M: 50777 Init Hosp L2
[2017-07-29] MEDS: Doxycycline 100 MG CAPSULE PO ×2 (10:06→21:43)
[2017-07-29] MEDS: Metoprolol Tartrate 25 MG Tablet PO ×2 (10:06→21:46)
[2017-07-29] MEDS: oxyCODONE 5 MG Tablet PO (10:07)
--- NOTE | 2017-07-29 10:50 | CASEMGMT ---
KATHARINE SHABAZZ Face to Face with patient for initial transition planning/care coordination assessment. RN HARIKA introduced self and role at [facility]. Patient sitting in chair, alert and oriented. Patient willing to participate in assessment and is able to answer all questions appropriately. Care providers, pharmacy, and demographics verified. See link attached. Patient wishes to discharge home, patient is setup with [facility] for outpatient therapy and family will be providing transportation. Patient states he has no further needs or concerns at this time. CM to follow for discharge planning needs that may arise. Disposition Plan: Patient to discharge home with outpatient therapy, family support, and follow-up plans in place.
[2017-07-29 12:01] LABS: Bedside Glucose 251 mg/dL (70-110)
[2017-07-29 16:30] LABS: Bedside Glucose 172 mg/dL (70-110)
[2017-07-29] MEDS: Atorvastatin Calcium 10 MG Tablet PO (21:42)
[2017-07-30 02:00] VITALS: BP 158/77; PULSE 76; RESP 16; TEMP 36.8; O2SAT 95
[2017-07-30] MEDS: Acetaminophen 500 MG Tablet 1000 MG PO (05:37)
[2017-07-30 06:05] LABS: Hematocrit 34.3 % (40-54); Hemoglobin 11.6 g/dl (13.0-16.5); Mean Corp Hgb Conc 33.8 g/gl (32-36); Mean Corpuscular Hgb 30.8 pg (27.0-32.0); Mean Platelet Vol. 10.1 fl (6.2-12.0); Platelet Count 195 K/mm3 (150-450); RBC Distribution Width CV 13.7 % (11.6-14.6); RBC Distribution Width SD 44.6 fl (35.1-43.9); Red Blood Count 3.77 M/mm3 (4.6-6.2); White Blood Count 12.9 K/mm3 (4.4-11.0)
[2017-07-30 06:11] LABS: Scan Indicated on CBC? Y/N NO
--- NOTE | 2017-07-30 07:14 | PN.ORTHO_ITS ---
Subjective: The patient was sitting in bedside chair upon examination. Patient denies any chest pain, shortness of breath, dizziness, lightheadedness, nausea or vomiting , or calf pain. Pain is controlled on medications. No adverse overnight events. Patient states he feels much better from prior to surgery with regards to his right hip. Patient is asking to be discharged today. Overall he is doing very well and pain is controlled. Objective: Vital signs stable and afebrile. Patient is able to plantarflex and dorsiflex actively. Sensation is intact to light touch to saphenous, sural, superficial and deep peroneal, and tibial distribution. Dressing is clean dry and intact. Negative Homans bilaterally, negative signs and symptoms of DVT. - Physical Exam General: Alert, Oriented x3, Cooperative, No apparent distress Vital Signs Temp Pulse Resp BP Pulse Ox 98.2 F 76 16 158/77 H 95 07/30/17 02:00 07/30/17 02:00 07/30/17 02:00 07/30/17 02:00 07/30/17 02:00 Oxygen Delivery Method Room Air Weight: 131.8 kg Body Mass Index (BMI) 40.5 Finger Stick Blood Glucose 234 Intake and Output for Last 24 Hours 07/28/17 07/29/17 07/30/17 23:59 23:59 23:59 Intake Total 2300 / 2300 4101 / 4101 600 / 600 Output Total 2725 / 2725 200 / 200 Balance 2300 / 2300 1376 / 1376 400 / 400 Microbiology Past 72 Hours 07/28/17 Unknown Gram Stain - Final Tissue - Hip Wound Culture - Preliminary No growth-Final to follow 07/28/17 Unknown Gram Stain - Final Tissue - Hip Wound Culture - Preliminary No growth-Final to follow 07/28/17 Unknown Gram Stain - Final Tissue - Hip Wound Culture - Preliminary No growth-Final to follow Laboratory Tests Past 24 Hrs 07/30/17 05:36 WBC 12.9 H RBC 3.77 L Hgb 11.6 L Hct 34.3 L MCV 91.0 MCH 30.8 MCHC 33.8 RDW 13.7 RDW Differential 44.6 H Plt Count 195 MPV 10.1 POC Glucose 07/29/17 07/29/17 16:16 11:28 POC Glucose 172 H 251 H Medical Necessity - Tobacco Use Smoking Status: Former smoker Assessment/Plan 1. S/P revision right hip arthroplasty acetabular component and femoral component POD #2 2. Continue Pain Medications: Tylenol and OxyIR 3. DVT Prophylaxis: Xarelto 4. PT/OT: Weightbearing as tolerated, posterior hip precautions for 3 months 5. H & H: 11.6/34.3, asymptomatic 6. Leukocytosis: Currently 12.9 trending down, afebrile. Patient did receive Decadron intraoperatively 7. Encouraged Incentive Spirometry 8. Continue postoperative medical management per medicine 9. Continue antibiotics while following cultures: Currently on doxycycline. Cultures with no growth at this time continue to monitor. 9. Disposition: Orthopedically stable, plan is for discharge home today. Patient's prescriptions will be E scribed to [facility]. Patient will follow-up per postop instructions.
--- NOTE | 2017-07-30 07:22 | DCINST_ITS ---
Discharge Diet: 1800 Calorie Control Diet Discharge Activity: May Not Drive - while taking narcotic pain medications. May shower in (days): 1 - Turned dressing away from water May resume sexual activity in: No Restrictions Ice area for (Minutes): 20 - Every hour Weight Bearing Status: Weight bearing as tolerated - Posterior hip dislocation precautions Additional Activity Instructions:: Wear elastic stockings for 2 weeks. DO NOT use alcohol with narcotic pain medication. DO NOT make important decisions while taking narcotic medication. If you have problems with taking your medication (rash, itching, nausea, etc.) call the office at once. Call your doctor if your incision/area has: Increased Pain/ Swelling, Increased Redness, Foul Smelling Discharge Call your doctor if you observe: Fever of 101 or Higher Remove Dressing in (days):: 3 - Okay to take dressing off on August 02, 2017 Additional Instructions: Follow-up and continue with [facility] postoperative instructions Allergies/Adverse Reactions: Allergies procaine HCl [From Novocain] Adverse Reaction (Verified 07/16/17 11:06) HEART RACES HEART RACES LAUGHING GAS Adverse Reaction (Uncoded 07/12/17 10:37) Vomiting Medications to take at Discharge Amlodipine [Norvasc] 5 mg PO DAILY 07/25/15 Aspirin [Aspirin, Baby] 81 mg PO DAILY@0800 07/25/15 Losartan/Hydrochlorothiazide [Hyzaar 100-25 Tablet] 1 tab PO DAILY 07/25/15 Metformin HCl [Glucophage] 1,000 mg PO BID 07/25/15 Multivitamins,Therapeutic [Multivitamin] 1 tab PO DAILY 07/25/15 Loratadine [Claritin] 10 mg PO DAILY PRN 07/13/16 Sitagliptin Phosphate [Januvia] 100 mg PO DAILY 07/13/16 Simvastatin [Zocor] 20 mg PO QHS 10/28/16 Metoprolol Tartrate [Lopressor (beta allison)] 25 mg PO BID 07/12/17 Rivaroxaban [Xarelto] 20 mg PO DAILY 07/12/17 glipizide 5 mg tablet 5 mg PO QDAY 07/16/17 Acetaminophen [Tylenol] 1,000 mg PO Q8 #90 tab 07/30/17 Doxycycline 100 mg PO BID #14 cap 07/30/17 Oxycodone [Oxyir] 5 - 10 mg PO Q4H PRN PRN 7 Days #84 tablet 07/30/17 Senna/Docusate Sodium [Senokot-S] 2 tab PO BID #20 tab 07/30/17 The following prescriptions were given: Oxycodone [Oxyir] 5 - 10 mg PO Q4H PRN PRN 7 Days #84 tablet PRN Reason: Mod-Severe Pain (4-02/16) Acetaminophen [Tylenol] 1,000 mg PO Q8 #90 tab Doxycycline 100 mg PO BID #14 cap Senna/Docusate Sodium [Senokot-S] 2 tab PO BID #20 tab Primary Care Physician: Collin Brooks DO [Primary Care Provider] - Please Follow Up With: [facility] When: 08/02/17 @ 10:00 with miguel Please Follow Up With: Chino Esquivel PA-C When: 08/11/17 @ 10:30 am
[2017-07-30 07:26] LABS: Bedside Glucose 202 mg/dL (70-110)
[2017-07-30] MEDS: oxyCODONE 5 MG Tablet PO (07:33)
[2017-07-30] MEDS: metFORMIN HCl 1,000 MG Tablet 1000 MG PO (07:33)
[2017-07-30] MEDS: Aspirin 81 MG TAB.CHEW PO (07:34)
[2017-07-30] MEDS: Losartan Potassium 100 MG Tablet PO (07:34)
[2017-07-30] MEDS: Doxycycline 100 MG CAPSULE PO (07:34)
[2017-07-30] MEDS: amLODIPine 5 MG Tablet PO (07:34)
[2017-07-30] MEDS: Folic Acid 1 MG Tablet PO (07:34)
[2017-07-30] MEDS: Ferrous Sulfate 325 MG Tablet PO (07:34)
[2017-07-30] MEDS: glipiZIDE 5 MG Tablet PO (07:34)
[2017-07-30 07:35] VITALS: PULSE 70
[2017-07-30] MEDS: LINAGLIPTIN 5 MG TABLET PO (07:35)
[2017-07-30] MEDS: Metoprolol Tartrate 25 MG Tablet PO (07:35)
[2017-07-30] MEDS: Senna/Docusate Sodium 1 Tablet 2 TABLET PO (07:35)
[2017-07-30] MEDS: hydroCHLOROthiazide 25 MG Tablet PO (07:35)
[2017-07-30] MEDS: Famotidine 20 MG Tablet PO (07:35)
[2017-07-30] MEDS: Rivaroxaban 20 MG Tablet PO (07:36)
[2017-07-30] MEDS: Glucerna Shake 120 ML LIQUID PO (07:38)
[2017-07-30 07:39] VITALS: BP 143/73; PULSE 70; RESP 16; TEMP 36.7; O2SAT 100
--- NOTE | 2017-07-30 08:50 | PCM.PROGNOTE ---
Subjective: Chief complaint: Follow-up after consultation for postoperative medical management. Patient seen and examined. No acute events overnight. He mentioned that his right hip pain is stiff, pain is manageable. He denies any other significant complaints. His vital signs are stable. - Physical Exam General: Alert, Oriented x3, Cooperative, No apparent distress HEENT: Atraumatic, PERRLA, EOMI Oral: Moist Mucosa, No Gingival or Mucosal Lesions/ Ulcerations Neck: Supple, No JVD, Negative Carotid Bruits, Trachea Midline, Thyroid Normal Size and Texture Lungs: Clear to auscultation, No rhonchi, No wheeze, No rales, Diminished Cardiovascular: Regular rate, Regular Rhythm, Normal S1, Normal S2, PMI Normal Abdomen: Bowel Sounds Present, Soft, Non Tender, Non-Distended, No Hepato-splenomegaly, Obese Extremities: No clubbing, No cyanosis, No edema Skin: No rashes, No breakdown Lymphatic: No Cervical, Supraclavicular, or Inguinal Adenopathy Neurological: Cranial nerves II-XII grossly intact, Neuro grossly intact Psych/Mental Status: Normal Affect, Appropriate Vital Signs Temp Pulse Resp BP Pulse Ox 98.1 F 70 16 143/73 H 100 07/30/17 07:39 07/30/17 07:39 07/30/17 07:39 07/30/17 07:39 07/30/17 07:39 Oxygen Delivery Method Room Air Weight: 290 lb 9.108 oz Body Mass Index (BMI) 40.5 Finger Stick Blood Glucose 234 Intake and Output for Last 24 Hours 07/28/17 07/29/17 07/30/17 23:59 23:59 23:59 Intake Total 2300 / 2300 4101 / 4101 600 / 600 Output Total 2725 / 2725 200 / 200 Balance 2300 / 2300 1376 / 1376 400 / 400 Microbiology Past 72 Hours 07/28/17 Unknown Gram Stain - Final Tissue - Hip Wound Culture - Preliminary No growth-Final to follow Anaerobic Culture - Preliminary No growth in 48 hours. 07/28/17 Unknown Gram Stain - Final Tissue - Hip Wound Culture - Preliminary No growth-Final to follow Anaerobic Culture - Preliminary No growth in 48 hours. 07/28/17 Unknown Gram Stain - Final Tissue - Hip Wound Culture - Preliminary No growth-Final to follow Anaerobic Culture - Preliminary No growth in 48 hours. Laboratory Tests Past 24 Hrs 07/30/17 05:36 WBC 12.9 H RBC 3.77 L Hgb 11.6 L Hct 34.3 L MCV 91.0 MCH 30.8 MCHC 33.8 RDW 13.7 RDW Differential 44.6 H Plt Count 195 MPV 10.1 POC Glucose 07/30/17 07/29/17 07/29/17 06:52 16:16 11:28 POC Glucose 202 H 172 H 251 H Medical Necessity - Tobacco Use Smoking Status: Former smoker Assessment/Plan This is a 67 years old male patient admitted for elective posterior revision of right total hip replacement for painful right total hip replacement, aseptic loosening and instability and I am seeing this patient in consultation for postoperative medical management. 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 Right hip pain is manageable. Vital signs are stable. Repeat CBC from today revealed the WBC is trending down, patient remained afebrile. From a medical standpoint, he is stable to be discharged home on the same home medications without any changes. #2 leukocytosis: Resolving, remained afebrile. #3 paroxysmal atrial fibrillation: Heart rate remained stable in the 70s and remains sinus rhythm. He is on metoprolol for rate control and started back on Xarelto. #4 hypertension: Blood pressure has been fluctuating likely because of pain in surgery. Continue Norvasc, HCTZ, losartan and metoprolol. #5 type 2 diabetes mellitus: Blood sugar has been around 200s, fair control, continue ADA diet, Accu-Cheks, continue glipizide, Tradjenta and Metformin. #6 hyperlipidemia: Continue statins. #7 carotid artery disease: Status post carotid endarterectomy. # DVT prophylaxis: He is on Xarelto. This note was generated with [employer] dictation software. It may contain incorrect words, spelling, and punctuation that were not noted in checking the note before signing. Code Visit Inpatient E&M: 73207 Subs Hosp L2
[2017-07-30 11:02] VITALS: BP 138/67; PULSE 75; RESP 16; TEMP 36.7; O2SAT 97
[2017-07-30 11:20] LABS: Bedside Glucose 235 mg/dL (70-110)
== END 2017-07-30 13:10 | disposition home or self-care (01) | DRG 467 ==
LOC: ACINP 11:27 → MS3 17:18
PROVIDERS: Admitting Provider Specialist; Family Provider Family Medicine; PCP Family Medicine; Visit Provider Specialist
PROC: 0SR904A Replacement of Right Hip Joint with Ceramic on Polyethylene Synthetic Substitute, Uncemented, Open Approach (ICD-10-PCS; CPT 27134; principal; 2017-07-28 13:20)
DX: T84.030A Mechanical loosening of internal right hip prosthetic joint, initial encounter (principal); Z68.41 Body mass index [BMI] 40.0-44.9, adult; I48.0 Paroxysmal atrial fibrillation; T84.020A Dislocation of internal right hip prosthesis, initial encounter; Z96.641 Presence of right artificial hip joint; E11.9 Type 2 diabetes mellitus without complications; I10 Essential (primary) hypertension; I25.10 Atherosclerotic heart disease of native coronary artery without angina pectoris; Z87.891 Personal history of nicotine dependence; Z79.899 Other long term (current) drug therapy; Z79.82 Long term (current) use of aspirin; Z79.84 Long term (current) use of oral hypoglycemic drugs; E78.00 Pure hypercholesterolemia, unspecified; Z79.02 Long term (current) use of antithrombotics/antiplatelets; E66.9 Obesity, unspecified
CPT/HCPCS: 36415; 73502; 80048; 82962; 83036; 85027; 87015; 87070; 87075; 87081; 87102; 87116; 87205; 87206; 97110; 97116; 97162; 97166; 97530; 97535; 97802; 99251; J7120; A4216; G0463

== ENCOUNTER → 2017-08-05 11:19 | Outpatient (CLI) | payer OTHER, MEDICARE, SELFPAY ==
[2017-08-05 16:35] LABS: Absolute Lymphocyte Count 2.85 X10^3/ul (0.83-4.51); Absolute Neutrophil Count 9.4 X10^3/uL (2.0-7.7); Basophil# 0.03 X10^3/uL; Basophil% 0.2 % (0-1); Eosinophil# 0.27 X10^3/uL; Eosinophils% 1.9 % (0-5); Hematocrit 37.2 % (40-54); Hemoglobin 12.3 g/dl (13.0-16.5); Lymphocyte # 2.85 X10^3/ul (4.0); Lymphocyte % 19.9 % (19-41); Mean Corp Hgb Conc 33.1 g/gl (32-36); Mean Corpuscular Hgb 30.2 pg (27.0-32.0); Mean Corpuscular Volume 91.4 fL (80-94); Mean Platelet Vol. 11.2 fl (6.2-12.0); Monocyte# 1.58 X10^3/uL; Neutrophil # 9.43 X10^3/uL (2.7-7.7); Platelet Count 344 K/mm3 (150-450); RBC Distribution Width CV 13.3 % (11.6-14.6); Red Blood Count 4.07 M/mm3 (4.6-6.2); White Blood Count 14.3 K/mm3 (4.4-11.0)
[2017-08-05 16:36] LABS: Differential Indicated SCAN CRITERIA MET; POSITIVE COUNT NO; POSITIVE DIFFERENTIAL YES; POSITIVE MORPHOLOGY NO
[2017-08-05 16:50] LABS: Differential Comment SCANNED
== END ==
PROVIDERS: Family Provider Family Medicine; PCP Family Medicine; Visit Provider Family Medicine
DX: D72.829 Elevated white blood cell count, unspecified (principal)
CPT/HCPCS: 36415; 85025; 87040